=== PATIENT | male | born 1945 | race Caucasian/White ===

== ENCOUNTER → 2017-01-16 | Outpatient (CLI) | payer OTHER ==
--- NOTE | ~2017-01-16 | BD1 ---
[facility] A Service of [facility] [place] [facility] RADIOLOGY TEXT RESULTS PATIENT: ANDRADE VALVERDE LOCATION: [facility] : 49 UNIT #: [id number] AGE: [address]: Perla Jerome MD SEX: M ORDER DR: [id number] [facility]. [place], [place] [address] [id number] O MR#: [id number] Acc #: [id number] NAME: ANDRADE VALVERDE : 1945 SEX: M STUDY DATE/TIME: 01/16/2017 10:48 UNIT: [facility] ROOM: STUDY DESCRIPTION: BD Dexa Bone Dens 1+ Site Attending Physician: Perla Jerome M.D. Referring Physician: Perla Jerome M.D. Ordering Physician: Perla Jerome M.D. Primary Care Physician: Perla Jerome M.D. MEDICAL IMAGING REPORT This report is preliminary unless electronic signature is present EXAM Bone density spine/hip 01/16/2017 HISTORY Osteo SCR. Family history of osteoporosis in sister. TECHNIQUE Bone density scanning performed upper 4 lumbar vertebral segments and proximal left femur in 71-year-old male weighing 233 pounds. FINDINGS L1-L4: total bone mineral density of 1.303 g/cm sq for a T-score of 1.9 standard deviation above mean for reference population normal young individuals and Z-score 2.8 standard deviations above mean for age-matched population. Proximal left femur: Total bone mineral density 1.150 g/cm sq for a T-score 0.8 standard deviation above mean for reference population normal young individuals and Z-score 1.4 standard deviations above mean for age-matched population. Left femoral neck: Bone mineral density 0.886 g/cm sq for a T-score 0.3 standard deviation below mean for reference population normal young individuals and Z-score 0.8 standard deviations above the mean for age-matched population. IMPRESSION Normal bone mineral density upper 4 lumbar vertebral segments and proximal left femur. Please correlate with the patient's clinical status. Continued surveillance recommended as clinically warranted. [facility] A Service of [facility] [place] [facility] RADIOLOGY TEXT RESULTS PATIENT: ANDRADE VALVERDE LOCATION: [facility] : 49 UNIT #: [id number] AGE: [address]: Perla Jerome MD SEX: M ORDER DR: Dictated by... Khalif Rutledge M.D. THIS IS AN ELECTRONICALLY VERIFIED REPORT Khalif Rutledge M.D. at 01/18/2017 8:06 PM IRENA/julian TD: 01/16/2017 18:37 JOB #: [id number] MEDICAL IMAGING REPORT Page 1 of 1 COPY
== END | disposition home or self-care (01) ==
LOC: CWCC 10:38
DX: Z13.820 Encounter for screening for osteoporosis (principal)
CPT/HCPCS: 77080